=== PATIENT | female | born 1935 | race Caucasian/White ===

== ENCOUNTER 2017-01-04 09:53 | Emergency (ER) | payer OTHER ==
[~2017-01-04] VITALS: Ht 165.1 cm; Wt 77.1 kg
[2017-01-04 09:55] VITALS: BP 119/74
[2017-01-04] MEDS ORDERED: HYDR25TA32 PO (09:59)
[2017-01-04] MEDS ORDERED: [UNRECOGNIZED DRUG - CODE] PO (09:59)
[2017-01-04] MEDS ORDERED: METO25TA3 PO (09:59)
[2017-01-04] MEDS ORDERED: CALC-332 PO (09:59)
[2017-01-04] MEDS ORDERED: [UNRECOGNIZED DRUG - CODE] PO (09:59)
--- NOTE | 2017-01-04 10:02 | NUR ---
Patient ambulated to bed 03.
--- NOTE | 2017-01-04 10:05 | NUR ---
81F BIB FAMILY C/O HEADACHE "ALL OVER HEAD", THROBBING, RADIATES TO POSTERIOR NECK, 04/12 X TUESDAY; PT STATES NO TRAUMA OR INJURY TO HEAD AT THIS TIME; PT STATES NO LOSS OF VISION OR VISION CHANGES AT THIS TIME; PT AA&OX4, PERRLA, BL LUNG SOUNDS CLEAR, RR EVEN/UNLABORED, SKIN IS WARM/DRY/INTACT AT THIS TIME; PT STATES NO N/V/D AT THIS TIME; PT PLACED ON MONITOR, RESTING IN BED W/ HOB ELEVATED AND IN LOWEST POSITION; POSITIONED FOR COMFORT; ER MD MADE AWARE OF STATUS. WILL CONTINUE TO MONITOR.
[2017-01-04] MEDS ORDERED: IBUPROFEN 600 MG TAB ONE (10:14)
[2017-01-04] MEDS ORDERED: NACL 0.9% 1,000 ML IV ONE (10:15)
--- NOTE | 2017-01-04 10:16 | NUR ---
Judith hartmann in ED - 01/04/17 at 1017 by INDER Patient taken to CT via [facility].
--- NOTE | 2017-01-04 10:16 | NUR ---
Judith hartmann in ED - 01/04/17 at 1017 by BRYANNA PT TAKEN TO CT VIA MCKAYLA ACCOMPANIED BY [employer] AT THIS TIME.
--- NOTE | 2017-01-04 10:16 | NUR ---
PT TAKEN TO CT VIA GURJERRY ACCOMPANIED BY [employer] AT THIS TIME.
--- NOTE | 2017-01-04 10:29 | NUR ---
Patient back from CT via [facility].
--- NOTE | 2017-01-04 10:37 | NUR ---
LAB at bedside.
[2017-01-04 10:47] LABS: BASOPHILS # (AUTO) 0.1 K/uL (0.00-0.22); BASOPHILS % (AUTO) 0.8 % (0.0-2.0); EOSINOPHILS # (AUTO) 0.2 K/uL (0-0.4); EOSINOPHILS % (AUTO) 1.6 % (0.0-4.0); HEMATOCRIT 36.4 % (36-48); HEMOGLOBIN 12.3 g/dL (12.0-16.0); LYMPHOCYTES # (AUTO) 1.1 K/uL (2.5-16.5); LYMPHOCYTES % (AUTO) 11.3 % (20.5-51.1); MEAN CORPUSCULAR HEMOGLOBIN 29 pg (27-31); MEAN CORPUSCULAR HGB CONC 34 g/dL (33-37); MEAN CORPUSCULAR VOLUME 87 fL (80-94); MONOCYTES # (AUTO) 1.4 K/uL (0.8-1.0); MONOCYTES % (AUTO) 14.1 % (1.7-9.3); NEUTROPHILS # (AUTO) 7.1 K/uL (1.8-7.7); NEUTROPHILS % (AUTO) 72.2 % (42.2-75.2); PLATELET COUNT (AUTO) 172 K/uL (140-450); RED BLOOD CELL COUNT(AUTO) 4.19 MIL/uL (4.20-5.40); RED CELL DISTRIBUTION WIDTH 12.8 % (11.6-13.7); WHITE BLOOD COUNT (AUTO) 9.9 K/uL (4.8-10.8)
[2017-01-04 11:01] LABS: ALANINE AMINOTRANSFERASE 25 U/L (14-59); ALBUMIN 3.3 g/dL (3.4-5.0); ALKALINE PHOSPHATASE 66 U/L (46-116); ASPARTATE AMINOTRANSFERASE 24 U/L (15-37); CALCIUM 8.3 mg/dL (8.5-10.1); CARBON DIOXIDE 27.4 mmol/L (21-32); CHLORIDE 100 mmol/L (98-107); CREATININE 1.2 mg/dL (0.6-1.3); GLUCOSE 118 mg/dL (74-106); POTASSIUM 3.4 mmol/L (3.5-5.1); SODIUM SERUM 135 mmol/L (136-145); TOTAL BILIRUBIN 0.8 mg/dL (0.0-1.0); TOTAL PROTEIN, SERUM 8.5 g/dL (6.4-8.2); UREA NITROGEN, BLOOD 21 mg/dL (7-18)
--- NOTE | 2017-01-04 11:01 | NUR ---
PT STATES HEADACHE 4/10 AT THIS TIME; RR EVEN/UNLABORED; POSITIONED FOR COMFORT; WILL CONTINUE TO MONITOR.
--- NOTE | 2017-01-04 11:03 | NUR ---
ER MD DR. PUTNAM EVALUATING PT AT BEDSIDE.
[2017-01-04 11:13] LABS: BILIRUBIN,URINE 1+ (NEGATIVE); BLOOD, URINE TRACE-L (NEGATIVE); LEUKOCYTE ESTERASE ,URINE TRACE (NEGATIVE); NITRITE, URINE NEGATIVE (NEGATIVE); PH,URINE 5.5 (5.0-9.0); PROTEIN,URINE 1+ (NEGATIVE); UGLUCOSE NEGATIVE (NEGATIVE)
[2017-01-04 11:22] LABS: INR 1.1 (0.8-1.2); PARTIAL THROMBOPLASTIN TIME 26.4 secs (22-35.6); PROTHROMBIN TIME 10.9 secs (10.8-13.4)
[2017-01-04 11:26] LABS: APPEARANCE,URINE SLIGHTLY HAZY (CLEAR); COLOR,URINE YELLOW (YELLOW)
[2017-01-04 11:27] LABS: BACTERIA,URINE 1+ /HPF (None Seen); ICTOTEST NEGATIVE (NEGATIVE); RBC,URINE NONE SEEN /HPF (0-5)
[2017-01-04] MEDS ORDERED: LEVOFLOXACIN 500 MG/D5W PREMIX 100 ML IV ONE (11:35)
[2017-01-04] MEDS ORDERED: KETOROLAC 30 MG/ML VIAL IVP ONE (12:15)
--- NOTE | 2017-01-04 12:38 | NUR ---
PT APPEARS TO BE RESTING COMFORTABLY IN BED; VSS; RR EVEN/UNLABORED; POSITIONED FOR COMFORT; FAMILY AT BEDSIDE; WILL CONTINUE TO MONITOR.
--- NOTE | 2017-01-04 13:00 | NUR ---
IV removed, catheter intact and site benign. Applied folded 4x4 gauze and tape to stop bleeding. PT TOLERATED PROCEDURE WELL.
[2017-01-04 13:08] VITALS: BP 95/58
--- NOTE | 2017-01-04 13:08 | NUR ---
Patient discharged with v/s stable. Written and verbal after care instructions given and explained. Patient alert, oriented and verbalized understanding of instructions. Ambulatory with steady gait. All questions addressed prior to discharge. ID band removed. Patient advised to follow up with PMD. Rx of CIPRO 500MG TAB & MOTRIN 800MG TAB given. Patient educated on indication of medication including possible reaction and side effects. Opportunity to ask questions provided and answered.
== END 2017-01-04 13:08 | disposition home or self-care (01) ==
LOC: MED 09:53
DX: N39.0 Urinary tract infection, site not specified (principal); I10 Essential (primary) hypertension
CPT/HCPCS: 36415; 70450; 71010; 80053; 81001; 85025; 85610; 85730; 87040; 87086; 96361; 96365; 96375; 99285; J1885; J1956; J7030

== ENCOUNTER 2017-01-18 10:17 | Inpatient (IN) | payer OTHER ==
[~2017-01-18] VITALS: Ht 165.1 cm; Wt 76.7 kg
[~2017-01-18 10:17] MED LIST: CALC-332 PO; HYDR25TA32 PO; METO25TA3 PO; [UNRECOGNIZED DRUG - CODE] PO; [UNRECOGNIZED DRUG - CODE] PO
[2017-01-18 10:47] VITALS: BP 123/67
[2017-01-18 11:19] LABS: HEMATOCRIT 31.3 % (36-48); HEMOGLOBIN 10.5 g/dL (12.0-16.0); MEAN CORPUSCULAR HEMOGLOBIN 30 pg (27-31); MEAN CORPUSCULAR HGB CONC 33 g/dL (33-37); MEAN CORPUSCULAR VOLUME 89 fL (80-94); PLATELET COUNT (AUTO) 311 K/uL (140-450); RED BLOOD CELL COUNT(AUTO) 3.54 MIL/uL (4.20-5.40); RED CELL DISTRIBUTION WIDTH 13.4 % (11.6-13.7); WHITE BLOOD COUNT (AUTO) 15.8 K/uL (4.8-10.8)
[2017-01-18 11:34] LABS: BAND % (MANUAL) 12 % (0-8); LYMPHOCYTES % (MANUAL) 7 % (20-46); MONOCYTES % (MANUAL) 3 % (5-12); NEUTROPHILS % (MANUAL) 78 (43-65)
[2017-01-18 11:51] LABS: ALANINE AMINOTRANSFERASE 124 U/L (14-59); ALBUMIN 1.7 g/dL (3.4-5.0); ALKALINE PHOSPHATASE 169 U/L (46-116); ANION GAP 12.6 (8-16); ASPARTATE AMINOTRANSFERASE 117 U/L (15-37); CALCIUM 7.7 mg/dL (8.5-10.1); CARBON DIOXIDE 23.4 mmol/L (21-32); CHLORIDE 102 mmol/L (98-107); CREATININE 1.3 mg/dL (0.6-1.3); GLUCOSE 113 mg/dL (74-106); SODIUM SERUM 134 mmol/L (136-145); TOTAL BILIRUBIN 1.3 mg/dL (0.0-1.0); TOTAL PROTEIN, SERUM 7.9 g/dL (6.4-8.2); UREA NITROGEN, BLOOD 22 mg/dL (7-18)
--- NOTE | 2017-01-18 15:15 | NUR ---
Patient to bed 05.
--- NOTE | 2017-01-18 15:31 | NUR ---
PT PRESENTS TO ER W/C/O WEAKNESS X2 WEEKS. 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 HX HTN. DENIES N/V/D; SKIN IS PINK/WARM/DRY; AAOX4 WITH EVEN AND STEADY GAIT; LUNGS CLEAR BL; HR EVEN AND REGULAR; PT DENIES ANY FEVER, CP, SOB, OR COUGH AT THIS TIME; PATIENT STATES PAIN OF 0/10 AT THIS TIME; VSS; PATIENT POSITIONED FOR COMFORT; HOB ELEVATED; BEDRAILS UP X2; BED DOWN. ER MD MADE AWARE OF PT STATUS.
--- NOTE | 2017-01-18 15:48 | NUR ---
Judith hartmann in [facility] - 01/18/17 at [address] Spivey evaluating patient at bedside.
[2017-01-18] MEDS ORDERED: NACL 0.9% 1,000 ML IV ONE (15:50)
--- NOTE | 2017-01-18 16:01 | NUR ---
LAB at bedside.
[2017-01-18 16:26] LABS: LACTIC ACID 1.1 mmol/L (0.4-2.0)
[2017-01-18 16:59] LABS: APPEARANCE,URINE CLEAR (CLEAR); BILIRUBIN,URINE 1+ (NEGATIVE); BLOOD, URINE NEGATIVE (NEGATIVE); COLOR,URINE YELLOW (YELLOW); LEUKOCYTE ESTERASE ,URINE TRACE (NEGATIVE); NITRITE, URINE NEGATIVE (NEGATIVE); PROTEIN,URINE TRACE (NEGATIVE); UGLUCOSE NEGATIVE (NEGATIVE)
[2017-01-18 17:01] LABS: ICTOTEST POSITIVE (NEGATIVE)
[2017-01-18 17:02] LABS: BACTERIA,URINE 2+ /HPF (None Seen); RBC,URINE 0-5 /HPF (0-5)
[2017-01-18 17:03] LABS: SQUAMOUS EPITHELIAL CELL,UR 0-5 /LPF (0-3 (FEW))
[2017-01-18 17:04] LABS: HYALINE CASTS, URINE 0-10 /LPF (None Seen)
--- NOTE | 2017-01-18 17:06 | NUR ---
XRAY at bedside.
[2017-01-18 17:44] LABS: INR 1.2 (0.8-1.2); PARTIAL THROMBOPLASTIN TIME 29.2 secs (22-35.6); PROTHROMBIN TIME 11.9 secs (10.8-13.4)
[2017-01-18] MEDS ORDERED: LEVOFLOXACIN 500 MG/D5W PREMIX 100 ML IV ONE (18:30)
[2017-01-18] MEDS ORDERED: ONDANSETRON 4 MG/2 ML VIAL IVP PRN (19:00)
[2017-01-18] MEDS ORDERED: MORPHINE SULFATE 2 MG/ML SYR IVP PRN (19:00)
[2017-01-18] MEDS ORDERED: ACETAMINOPHEN 325 MG TAB PO PRN (19:00)
[2017-01-18] MEDS ORDERED: HYDROcodone/APAP 5/325 MG 1 TAB TAB PO PRN (19:00)
--- NOTE | 2017-01-18 19:27 | NUR ---
REPORT GIVEN TO MOLLY LITTLE
--- NOTE | 2017-01-18 20:00 | NUR ---
Patient will be admitted to care of [facility]. Admited to [employer]. Will go to [id number]. Belongings list completed. Report to MOLLY MENA.
--- NOTE | 2017-01-18 20:02 | NUR ---
PT TRASFERRED TO TELEMETRY VIA GURNEY NO S/S OF DISTRESS NOTED UPON TRASFER. ACCOMPANIED BY RN AND EMT.
--- NOTE | 2017-01-18 20:20 | NUR ---
RECEIVED REPORT FROM ED RN FOR CONTINUITY OF CARE. 81 Y.O. FEMALE BROUGHT TO UNIT WITH DX: UTI. PATIENT IS ALERT AND ORIENTED X4, DISCUSSED PLAN OF CARE WITH PATIENT AND FAMILY MEMBER AT BEDSIDE, VERBALIZED UNDERSTANDING. SHIFT ASSESSMENT DONE, VITAL SIGNS STABLE. NO S/S OF RESPIRATORY DISTRESS NOTED ON 2L NC. PATIENT DENIES PAIN. IV TO LT AC PATENT AND INFUSING FLUIDS WELL. SKIN INTACT. MRSA SWAB COLLECTED AND WRISTBANDS APPLIED. CALL LIGHT PLACED WITHIN REACH AND PATIENT EDUCATED TO USE FOR ASSISTANCE. SAFETY PRECAUTIONS ENFORCED, WILL CONTINUE TO MONITOR.
[2017-01-18] MEDS ORDERED: cefTRIAXone 1,000 MG VIAL ONE (20:50)
[2017-01-18 21:00] VITALS: BP 136/67
[2017-01-18] MEDS: NACL 0.9% 1,000 ML IV SCH (21:27)
--- NOTE | 2017-01-18 21:40 | NUR ---
DUE MEDICATIONS ADMINISTERED, TOLERATED WELL. PT GIVEN TYLENOL FOR INCREASED TEMPERATURE. FAMILY MEMBER AT BEDSIDE, WILL CONTINUE TO MONITOR.
--- NOTE | 2017-01-18 22:23 | NUR ---
PAGED DR. BOLAÑOS REGARDING PATIENTS BP MEDICATION, PER MD OK TO CONTINUE WITH HOME MEDICATIONS.
[2017-01-18] MEDS: METOPROLOL 25 MG TAB PO SCH (23:16)
[2017-01-19] VITALS: BP 115/63
--- NOTE | 2017-01-19 | NUR ---
VITAL SIGNS STABLE, PATIENT RESTING IN BED NO S/S OF DISTRESS OR DISCOMFORT NOTED. CALL LIGHT WITHIN REACH.
--- NOTE | 2017-01-19 02:05 | NUR ---
PATIENT ASLEEP AT THIS TIME, NO S/S OF DISTRESS OR DISCOMFORT NOTED. CALL LIGHT WITHIN REACH.
[2017-01-19 04:00] VITALS: BP 137/71
--- NOTE | 2017-01-19 04:10 | NUR ---
VITAL SIGNS STABLE, PATIENT ASSISTED TO USE BEDPAN. CLEANED AND PROVIDED AM CARE. WILL CONTINUE TO MONITOR FREQUENTLY.
--- NOTE | 2017-01-19 05:44 | NUR ---
PATIENT RESTING IN BED, NO S/S OF DISTRESS OR DISCOMFORT NOTED. CALL LIGHT WITHIN REACH.
[2017-01-19 05:53] LABS: HEMATOCRIT 27.4 % (36-48); HEMOGLOBIN 9.9 g/dL (12.0-16.0); MEAN CORPUSCULAR HEMOGLOBIN 34 pg (27-31); MEAN CORPUSCULAR HGB CONC 36 g/dL (33-37); MEAN CORPUSCULAR VOLUME 94 fL (80-94); PLATELET COUNT (AUTO) 259 K/uL (140-450); RED BLOOD CELL COUNT(AUTO) 2.92 MIL/uL (4.20-5.40); RED CELL DISTRIBUTION WIDTH 14.1 % (11.6-13.7); WHITE BLOOD COUNT (AUTO) 12.5 K/uL (4.8-10.8)
[2017-01-19 06:21] LABS: CALCIUM 7.2 mg/dL (8.5-10.1); CARBON DIOXIDE 23.8 mmol/L (21-32); CHLORIDE 107 mmol/L (98-107); CREATININE 1.2 mg/dL (0.6-1.3); GLUCOSE 101 mg/dL (74-106); POTASSIUM 3.8 mmol/L (3.5-5.1); SODIUM SERUM 139 mmol/L (136-145); UREA NITROGEN, BLOOD 21 mg/dL (7-18)
[2017-01-19 06:52] LABS: BAND % (MANUAL) 3 % (0-8); EOSINOPHILS % (MANUAL) 6 % (0-4); LYMPHOCYTES % (MANUAL) 4 % (20-46); MONOCYTES % (MANUAL) 4 % (5-12); NEUTROPHILS % (MANUAL) 83 (43-65); PLATELET ESTIMATE ADEQUATE
--- NOTE | 2017-01-19 07:30 | NUR ---
ENDORSED PATIENT TO DAY RN FOR CONTINUITY OF CARE, PATIENT IS IN STABLE CONDITION.
--- NOTE | 2017-01-19 07:35 | NUR ---
RECEIVED REPORT FROM NIGHT RN. PT RESTING IN BED. AAOX4. NO S/S OF ACUTE DISTRESS. PT DENIES PAIN. IV SITE PATENT AND INTACT. CALL LIGHT WITHIN REACH. SAFETY MEASURES ENSURED. WILL CONTINUE TO MONITOR.
[2017-01-19 08:00] VITALS: BP 122/67
[2017-01-19] MEDS: NACL 0.9% 1,000 ML IV SCH ×2 (08:16→21:01)
--- NOTE | 2017-01-19 09:17 | NUR ---
PATIENT HAS BEEN SCREENED AND CATEGORIZED LOW NUTRITION RISK. PATIENT WILL BE SEEN WITHIN 7 DAYS OF ADMISSION. 01/25/[address] Addendum: 01/19/17 at [address] PATIENT HAS BEEN SCREENED AND CATEGORIZED MODERATE NUTRITION RISK. PATIENT WILL BE SEEN WITHIN 3-5 DAYS OF ADMISSION. 01/21/17-01/23/[address]
[2017-01-19] MEDS: ENALAPRIL 2.5 MG TAB PO SCH (10:00)
[2017-01-19] MEDS: ASPIRIN 81 MG TAB.CHEW PO SCH (10:00)
[2017-01-19] MEDS: ENOXAPARIN 40 MG/0.4 ML SYR SUBQ SCH (10:04)
--- NOTE | 2017-01-19 10:04 | NUR ---
AM MEDICATIONS GIVEN WITH EDUCATION. PT VERBALIZED UNDERSTANDING. PT'S DAUGHTER AT BEDSIDE. WILL CONTINUE TO MONITOR.
--- NOTE | 2017-01-19 11:46 | NUR ---
PT RESTING IN BED. NO S/S OF ACUTE DISTRESS. PT DENIES PAIN. CALL LIGHT WITHIN REACH. SAFETY MEASURES ENSURED. WILL CONTINUE TO MONITOR.
[2017-01-19 12:00] VITALS: BP 130/69
--- NOTE | 2017-01-19 12:29 | NUR ---
SPOKE WITH [employer] EDUCATIONAL AUDIOLOGIST. FAX REVIEW TO [employer] [phone]. FAXED INITIAL REVIEW TO [facility] PHONE DELILAH [phone] [facility] PHONE, .
[2017-01-19] MEDS ORDERED: MAG SULF 2000 MG/WATER PREMIX 50 ML IV SCH (14:00)
--- NOTE | 2017-01-19 14:27 | NUR ---
SS NOTE: MESSAGE LEFT FOR DELILAH WITH [employer] ([phone]) REGARDING MD ORDER FOR HH FOR PT AND FWW MD ORDER AND PT EVAL SENT TO [employer]
--- NOTE | 2017-01-19 15:44 | NUR ---
PT RESTING IN BED. NO S/S OF ACUTE DISTRESS. PT DENIES PAIN. DAUGHTER AT BEDSIDE. WILL CONTINUE TO MONITOR.
[2017-01-19 16:00] VITALS: BP 131/70
--- NOTE | 2017-01-19 19:21 | NUR ---
ENDORSED PLAN OF CARE TO NIGHT RN. PT REMAINS STABLE.
--- NOTE | 2017-01-19 19:30 | NUR ---
RECEIVED PT FROM RADHA BARNES PT IS ICELANDIC SPEAKER AAOX4 USING BSC WITH LOG CHECK SCALER VOIDING WELL IV ON LEFT AC INFUSING WELL ON TELEMETRY ST INITIAL ASSESSMENT DONE
[2017-01-19 20:00] VITALS: BP 136/74
[2017-01-19] MEDS ORDERED: FISH OIL PO SCH (21:00)
[2017-01-19] MEDS ORDERED: METOPROLOL 25 MG TAB PO SCH (21:00)
[2017-01-19] MEDS ORDERED: CALCIUM PO SCH (21:00)
[2017-01-19] MEDS ORDERED: VITAMIN D PO SCH (21:00)
[2017-01-19] MEDS: METOPROLOL 25 MG TAB PO SCH (21:02)
[2017-01-19] MEDS: CALCIUM CARB/VIT-D 500 MG/200 IU 1 TAB PO SCH (21:02)
--- NOTE | 2017-01-19 22:00 | NUR ---
PT REMAIN STBLE NOT DISTRESS NOTED
[2017-01-20] VITALS: BP 128/65
--- NOTE | 2017-01-20 01:12 | NUR ---
PT SLEEPING WELL NOT DISTRESS NOTED ON TELEMETRY SR
--- NOTE | 2017-01-20 03:34 | NUR ---
PT IS ASSISTED TO USE BSC VOIDING WELL ON TELEMETRY SR, NOT DISTRESS NOTED
[2017-01-20 04:00] VITALS: BP 135/77
--- NOTE | 2017-01-20 05:35 | NUR ---
PT SLEEPING WELL, NOT RESP DISTRESS IV ON LEFT AC INFUSNG WELL, PT IS REPOSITIONED Q 2H CCOOPERASRIVE. SR ON TELMETRY
[2017-01-20 05:50] LABS: BASOPHILS # (AUTO) 0.1 K/uL (0.00-0.22); BASOPHILS % (AUTO) 0.6 % (0.0-2.0); EOSINOPHILS # (AUTO) 0.8 K/uL (0-0.4); EOSINOPHILS % (AUTO) 6.8 % (0.0-4.0); HEMATOCRIT 28.3 % (36-48); HEMOGLOBIN 9.9 g/dL (12.0-16.0); LYMPHOCYTES # (AUTO) 1.3 K/uL (2.5-16.5); LYMPHOCYTES % (AUTO) 10.7 % (20.5-51.1); MEAN CORPUSCULAR HEMOGLOBIN 33 pg (27-31); MEAN CORPUSCULAR HGB CONC 35 g/dL (33-37); MEAN CORPUSCULAR VOLUME 94 fL (80-94); MONOCYTES % (AUTO) 8.9 % (1.7-9.3); NEUTROPHILS # (AUTO) 8.5 K/uL (1.8-7.7); PLATELET COUNT (AUTO) 303 K/uL (140-450); RED BLOOD CELL COUNT(AUTO) 3.03 MIL/uL (4.20-5.40); RED CELL DISTRIBUTION WIDTH 13.8 % (11.6-13.7); WHITE BLOOD COUNT (AUTO) 11.7 K/uL (4.8-10.8)
--- NOTE | 2017-01-20 06:21 | NUR ---
PT AWKE, REMAIN STABLE NOT DISTRESS NOTED ON TELEMETRY SR
[2017-01-20 06:40] LABS: ALANINE AMINOTRANSFERASE 78 U/L (14-59); ALBUMIN 1.3 g/dL (3.4-5.0); ALKALINE PHOSPHATASE 136 U/L (46-116); ASPARTATE AMINOTRANSFERASE 59 U/L (15-37); CARBON DIOXIDE 22.3 mmol/L (21-32); CHLORIDE 106 mmol/L (98-107); GLUCOSE 104 mg/dL (74-106); POTASSIUM 3.3 mmol/L (3.5-5.1); SODIUM SERUM 138 mmol/L (136-145); TOTAL BILIRUBIN 0.6 mg/dL (0.0-1.0); TOTAL PROTEIN, SERUM 6.7 g/dL (6.4-8.2); UREA NITROGEN, BLOOD 15 mg/dL (7-18)
--- NOTE | 2017-01-20 07:25 | NUR ---
01/20/17 0725 RECEIVED REPORT FROM THE ADULT SCHOOL COUNSELOR NURSE AT BEDSIDE FOR CONTINUITY OF CARE. PT IS AWAKE AND ORIENTED, NEPALESE SPEAKING. INTRODUCED MYSELF AND UPDATED THE BOARD. PER ADULT SCHOOL COUNSELOR NURSE, PT HAD NOT HAD A BM FOR 3 DAYS. WILL F/U. SKIN IN INTACT. NOTED THE BEDSIDE COMMODE NEXT TO BED. IV ON THE L JESE 20G, NS AT 80ML/HR. IT WAS D/C'D DUE TO USING THE COMMODE. RESTARTED. WILL BE BACK TO DO THE V/S. JAMSHID
[2017-01-20] MEDS: NACL 0.9% 1,000 ML IV SCH (07:55)
--- NOTE | 2017-01-20 07:55 | NUR ---
PT V/S WITHIN NORMAL RANGE. PT WANTED TO WAIT ON BREAKFAST. DENIES PAIN. LAB: WBC 11.7, K 3.3. WILL NOTIFY MD. DENIES PAIN. JUST TIRED. WILL CONTINUE TO MONITOR PT.
[2017-01-20 08:00] VITALS: BP 144/70
--- NOTE | 2017-01-20 08:30 | NUR ---
P/T CAME AND WAS WALKING IN THE HALLWAY WITH PT. PT USING WALKER, STEADY GAIT. TOLERATED WELL. WILL CONTINUE TO MONITOR PT.
[2017-01-20] MEDS: ENOXAPARIN 40 MG/0.4 ML SYR SUBQ SCH (08:58)
[2017-01-20] MEDS: CALCIUM CARB/VIT-D 500 MG/200 IU 1 TAB PO SCH (08:59)
[2017-01-20] MEDS: ASPIRIN 81 MG TAB.CHEW PO SCH (08:59)
[2017-01-20] MEDS: ENALAPRIL 2.5 MG TAB PO SCH (08:59)
[2017-01-20] MEDS ORDERED: ENALAPRIL 2.5 MG TAB PO SCH (09:00)
--- NOTE | 2017-01-20 09:00 | NUR ---
ADMINISTERED MORNING MEDS. PT IS SITTING ON SIDE OF BED, FEET DANGLING, EATING HER BREAKFAST. DAUGHTER AT BEDSIDE. EXPLAINED PT TO EACH MEDICATION GIVEN. PT TOLERATED WELL. VERBALIZED UNDERSTANDING. PT STATED SHE HAD A LARGE BM THIS MORNNG AT 6 AM. WILL CONTINUE TO MONITOR PT.
--- NOTE | 2017-01-20 10:25 | NUR ---
PT SITTING AT EDGE OF BED. VISITING WITH HER DAUGHTER. GRANDDAUGHTER CALLED. RELAYED MESSAGE. PT HAS NO COMPLAINTS AT THIS TIME. WILL CONTINUE TO MONITOR PT.
--- NOTE | 2017-01-20 10:40 | NUR ---
CM NOTE PER LILIAM MAZARIEGOS FOR [employer], HOME HEALTH SET UP W/ ANDREIA ([phone]). FWW TO BE DELIVERED BY [employer]; TO BE F/U W/ ETA OF [facility].
--- NOTE | 2017-01-20 11:49 | NUR ---
CM NOTE FAXED CONCURRENT REVIEW TO [employer] / FAX# [phone], ATTN: DELILAH [phone]
[2017-01-20 12:00] VITALS: BP 110/59
--- NOTE | 2017-01-20 12:01 | NUR ---
PT'S IV GOT INFILTRATED. REMOVED IV, CANNULA INTACT. NO BLEEDING NOTED. WILL LET ARM REST. WILL START IV AFTER LUNCH.
--- NOTE | 2017-01-20 12:30 | NUR ---
PT SITTING AT EDGE OF BED, EATING LUNCH. PT HAS NO COMPLAINTS. EATING WELL. DAUGHTER AT BEDSIDE. WILL CONTINUE TO MONITOR PT.
--- NOTE | 2017-01-20 13:00 | NUR ---
[facility] CALLED TO DELIVER FWW TO THE HOSPITAL BETWEEN 4-8PM. NOTIFIED THEM PT WILL BE D/C'D AT 1500. FAMILY WOULD LIKE IT TO BE DELIVERED TO THE HOUSE. THEY WILL DELIVER TOMORROW. FAMILY SPOKE W/ REP AND CONFIRMED ADDRESS AND TIME.
[2017-01-20] MEDS ORDERED: POTASSIUM CHLORIDE 10 MEQ TABER PO SCH (13:25)
--- NOTE | 2017-01-20 13:56 | NUR ---
CM NOTE PER FRANKIE FROM [facility], CONFIRMED HOME HEALTH THERAPY STARTING TOMORROW. HARSH W/ LILIAM MAZARIEGOS FOR [employer]. OK TO SEND FWW TO HOME.
--- NOTE | 2017-01-20 15:00 | NUR ---
WENT OVER THE DISCHARGE INSTRUCTIONS WITH PT AND DAUGHTER. PT TO F/U WITH PCP IN 1 TO 2 WEEKS. PT TO P/U RX FOR KEFLEX AND TO TAKE UNTIL FINISHED BID X 5 DAYS. INSTRUCTED PT TO STOP TAKING HCTZ INSTRUCTED BY . INSTRUCTED TO CONTINUE TAKING ALL OTHER HOME MEDS DIRECTED. EDUCATED PT ABOUT THE IMPORTANCE OF USING THE WALKER AT HOME. PT VERBALIZED UNDERSTANDING. ANSWERED ALL QUESTIONS. PT SIGNED ALL APPROPRIATE PAPERWORK. REMOVED TELE MONITOR AND ALL ID BANDS. IV REMOVED EARLIER D/T INFILTRATION. PT IN HER PERSONAL CLOTHES READY TO GO. PT IS IN STABLE CONDITION. STICK WELDER WENT TO GET WHEELCHAIR.
--- NOTE | 2017-01-20 15:10 | NUR ---
PT WHEELED OUT TO THE LOBBY ACCOMPANIED BY DAUGHTER AND ROTARY OPERATOR. PERSONAL BELONGINGS IN HAND. PT IS IN STABLE CONDITION. PT TO HAVE WALKER DELIVERED TO THE HOUSE TOMORROW.
--- NOTE | 2017-01-24 09:49 | NUR ---
FAXED DC SUMMARY AND DC MEDICATION RECONCILIATION LIST TO [facility] [phone].
== END 2017-01-20 15:10 | disposition home or self-care (01) | DRG 690 ==
LOC: MED 10:17 → MTU 19:05
PROVIDERS: ADMIT Hospitalist; ATTEND Hospitalist
DX: N39.0 Urinary tract infection, site not specified (principal); I10 Essential (primary) hypertension; E83.51 Hypocalcemia; E86.0 Dehydration; E02 Subclinical iodine-deficiency hypothyroidism; Z79.899 Other long term (current) drug therapy; Z90.49 Acquired absence of other specified parts of digestive tract; Z79.82 Long term (current) use of aspirin
CPT/HCPCS: 36415; 71010; 80048; 80053; 81001; 83605; 83690; 83735; 84439; 84443; 84484; 85025; 85610; 85730; 87040; 87081; 87086; 96361; 96365; 97110; 97116; 97530; 99285; J0696; J1650; J1956; J3475; J7030; J7060